=== PATIENT | female | born 1980 | race Caucasian/White ===

== ENCOUNTER 2017-05-01 15:41 | Emergency (ER) | payer SELFPAY ==
[~2017-05-01] VITALS: Ht 167.6 cm; Wt 97.0 kg
[~2017-05-01 15:41] MED LIST: ALBUAER19 INH; ARIP2TAB3 PO; BUSP15TA70 PO; CIPR1TAB11 PO; GABA1CAP5 PO; METH10TA4 PO; METH5TAB4 PO; OMEP40CA PO; SERT1TAB68 PO; TOPI100T20 PO; ZOLP10TA6 PO
[2017-05-01 15:46] VITALS: TEMP 36.7; Ht 167.6 cm; Wt 97.0 kg
[2017-05-01] MEDS ORDERED: GI COCKTAIL PO STA (17:01)
[2017-05-01] MEDS ORDERED: FAMOTIDINE 20 MG TAB PO STA (17:01)
[2017-05-01] MEDS ORDERED: SUCRALFATE 1 GM TAB PO STA (17:01)
--- NOTE | 2017-05-01 17:02 | EMERGENCY ROOM VISIT NOTE ---
History Report prepared by Ceci: Jose L Mello Under the Supervision of: Dr. Piotr Baptiste M.D. First contact with patient: 16:55 Chief Complaint: RIB PAIN Stated Complaint: CRAMPING UNDER RIB CAGE/3 DAYS/ FINGER History of Present Illness The patient is a 36 year old female who presents to the Emergency Room with complaints of persistent abdominal pain that started 3 days ago. She says that it feels like cramping up under her ribcage. She states that she thought it was gas, so she took Gas-X as well as Pepto Bismol, with no success. The patient also has taken Advil, Tylenol, and Zantac with no relief. She states that her pain is lessened when sitting, and moving around makes the pain worse. She had a laparoscopy in 2004. The patient has an IUD. Source of History: patient Onset: 3 days ago Position: abdomen Quality: cramping Timing: other (persistent) Modifying Factors (Worsening): movement Modifying Factors (Relieving): other (sitting) Note: No other associated symptoms noted. Review of Systems See HPI for pertinent positives & negatives. A total of 10 systems reviewed and were otherwise negative. Past Medical & Surgical Medical Problems: (1) Asthma (2) BIPOLAR DISORDER, UNSPECIFIED (3) Bronchitis (4) Cellulitis of hand (5) Diabetes (6) IV drug abuse (7) MIGRAINE UNSPECIFIED W/O INTRACT MGRN W/O STATUS MIGRAINOSUS (8) Polycystic ovarian disease Family History Diabetes mellitus FH: cancer FH: heart disease Hypertension Social History Smoking Status: Current Every Day Smoker Alcohol Use: none Drug Use: heroin Marital Status: single Housing Status: lives with family Occupation Status: unemployed Current/Historical Medications Scheduled Famotidine (Pepcid), 40 MG PO HS Fluoxetine (Prozac), 20 MG PO QAM Haloperidol (Haldol), 20 MG PO QPM Methylphenidate (Ritalin), 10 MG PO DAILY Methylphenidate (Ritalin), 5 MG PO DAILY Scheduled PRN Oxycodone/Acetaminophen 5MG/325MG (Percocet 5MG/325MG), 1-2 TAB PO Q4H PRN for Pain Allergies Coded Allergies: Azithromycin (Unverified Allergy, Intermediate, RASH, 05/01/17) Erythromycin (Verified Allergy, Unknown, 05/01/17) Penicillins (Verified Allergy, Unknown, 05/01/17) Sulfa Drugs (Verified Allergy, Unknown, 05/01/17) Replaces SULFAMETHOXAZ Trimethoprim (Verified Allergy, Unknown, 05/01/17) Replaces SULFAMETHOXAZ Physical Exam Vital Signs Date Time Temp Pulse Resp B/P (MAP) Pulse Ox O2 Delivery O2 Flow Rate FiO2 05/01/17 19:33 69 20 144/95 96 Room Air 05/01/17 18:29 62 05/01/17 17:45 71 20 138/110 97 Room Air 05/01/17 15:46 36.7 64 18 161/87 98 Physical Exam GENERAL: Patient is a healthy-appearing well-nourished 36 year old female. HEAD: Normocephalic atraumatic EYES: Ocular movements intact pupils equal and react to light OROPHARYNX mucous membranes are moist no exudates present no erythema or edema present NECK: Supple no nuchal rigidity CHEST: Good equal expansion LUNGS: Clear and equal to auscultation CARDIAC: Normal S1 and S2 ABDOMEN: Soft nontender no guarding BACK: No CVA tenderness EXTREMITIES: No pain upon palpation normal muscle strength in all groups no clubbing cyanosis or edema NEURO: Patient is following commands and answering questions appropriately. Alert and oriented x3 Cranial Nerves 2-12 grossly intact Medical Decision & Procedures ER Provider Diagnostic Interpretation: US results as stated below per my review and radiologist interpretation: ABDOMEN LIMITED (US) HISTORY: Pain. Nausea. Pt c/o RUQ abd pain. COMPARISON: None. FINDINGS: Pancreas: The pancreas demonstrates a normal echotexture. Liver: Unremarkable. Gallbladder: No gallbladder wall thickening. No gallstones. CBD: 3 mm Right kidney: No hydronephrosis. IMPRESSION: Normal study The above report was generated using voice recognition software. It may contain grammatical, syntax or spelling errors. Electronically signed by: Rob Beck M.D. 05/01/2017 7:09 PM Dictated Date/Time: 05/01/2017 7:08 PM Laboratory Results 05/01/17 18:02 Red Blood Count 4.56, Mean Corpuscular Volume 87.7, Mean Corpuscular Hemoglobin 30.3, Mean Corpuscular Hemoglobin Concent 34.5, Mean Platelet Volume 9.4, Neutrophils (%) (Auto) 54.4, Lymphocytes (%) (Auto) 31.5, Monocytes (%) (Auto) 9.0, Eosinophils (%) (Auto) 4.3, Basophils (%) (Auto) 0.4, Neutrophils # (Auto) 3.92, Lymphocytes # (Auto) 2.27, Monocytes # (Auto) 0.65, Eosinophils # (Auto) 0.31, Basophils # (Auto) 0.03 05/01/17 18:02 Test 05/01/17 18:02 05/01/17 18:30 White Blood Count 7.21 K/uL (4.8-10.8) Red Blood Count 4.56 M/uL (4.2-5.4) Hemoglobin 13.8 g/dL (12.0-16.0) Hematocrit 40.0 % (37-47) Mean Corpuscular Volume 87.7 fL (80-100) Mean Corpuscular Hemoglobin 30.3 pg (25-34) Mean Corpuscular Hemoglobin Concent 34.5 g/dl (32-36) Platelet Count 268 K/uL (130-400) Mean Platelet Volume 9.4 fL (7.4-10.4) Neutrophils (%) (Auto) 54.4 % Lymphocytes (%) (Auto) 31.5 % Monocytes (%) (Auto) 9.0 % Eosinophils (%) (Auto) 4.3 % Basophils (%) (Auto) 0.4 % Neutrophils # (Auto) 3.92 K/uL (1.4-6.5) Lymphocytes # (Auto) 2.27 K/uL (1.2-3.4) Monocytes # (Auto) 0.65 K/uL (0.11-0.59) Eosinophils # (Auto) 0.31 K/uL (0-0.5) Basophils # (Auto) 0.03 K/uL (0-0.2) RDW Standard Deviation 46.1 fL (36.4-46.3) RDW Coefficient of Variation 14.3 % (11.5-14.5) Immature Granulocyte % (Auto) 0.4 % Immature Granulocyte # (Auto) 0.03 K/uL (0.00-0.02) Anion Gap 7.0 mmol/L (3-11) Est Creatinine Clear Calc Drug Dose 139.1 ml/min Estimated GFR () 131.5 Estimated GFR (Non- 113.4 BUN/Creatinine Ratio 15.9 (10-20) Calcium Level 8.7 mg/dl (8.5-10.1) Total Bilirubin 0.3 mg/dl (0.2-1) Direct Bilirubin < 0.1 mg/dl (0-0.2) Aspartate Amino Transf (AST/SGOT) 15 U/L (15-37) Alanine Aminotransferase (ALT/SGPT) 28 U/L (12-78) Alkaline Phosphatase 109 U/L (45-117) Total Protein 7.5 gm/dl (6.4-8.2) Albumin 3.7 gm/dl (3.4-5.0) Lipase 819 U/L (73-393) Urine Color YELLOW Urine Appearance CLEAR (CLEAR) Urine pH 6.5 (4.5-7.5) Urine Specific Kemp 1.006 (1.000-1.030) Urine Protein NEG (NEG) Urine Glucose (UA) NEG (NEG) Urine Ketones NEG (NEG) Urine Occult Blood NEG (NEG) Urine Nitrite NEG (NEG) Urine Bilirubin NEG (NEG) Urine Urobilinogen NEG (NEG) Urine Leukocyte Esterase NEG (NEG) Urine Test NEG (NEG) Labs reviewed by ED physician. Medications Administered Medications (Trade) Dose Ordered Sig/Leola Route Start Time Stop Time Status Last Admin Dose Admin Famotidine (Pepcid Tab) 20 mg NOW STAT PO 05/01/17 17:01 05/01/17 17:04 DC 05/01/17 17:48 20 MG Sucralfate (Carafate Tab) 1 gm NOW STAT PO 05/01/17 17:01 05/01/17 17:04 DC 05/01/17 17:47 1 GM Al Hydroxide/Mg Hydroxide (Maalox Susp) 30 ml STK-MED ONCE .ROUTE 05/01/17 17:35 05/01/17 17:36 DC 05/01/17 17:48 30 ML Lidocaine HCl (Viscous Lidocaine 2% Soln) 20 ml STK-MED ONCE .ROUTE 05/01/17 17:35 05/01/17 17:36 DC 05/01/17 17:49 20 ML ED Course 1657: Past medical records reviewed. The patient was evaluated in room B7. A complete history and physical examination was performed. 1701: Ordered Carafate Tab 1 gm PO, Pepcid Tab 20 mg PO, GI Cocktail 24 ml PO. 1944: Upon reexamination the patient is resting comfortably. I discussed results and treatment plan with the patient. she verbalizes agreement and understanding. The patient is ready for discharge. Medical Decision Differential diagnosis: Etiologies such as appendicitis, diverticulitis, PUD, biliary pathology, UTI, pancreatitis, obstruction, mesenteric ischemia, aortic pathology, infections, inflammatory bowel disease, renal colic, as well as others were entertained. This is a 36-year-old female who presents emergency department complaining of epigastric pain. The patient was given Pepcid Carafate and GI cocktail in the emergency Department with improvement in her symptoms. I do believe that the patient as well as enough that she can be safely discharged home. The patient has a slight elevation in her pancreas which I believe could be admitted can or of pancreatitis. Her ultrasound did not show any evidence of pancreatitis. Using shared medical decision-making the patient does not feel a CAT scan will reveal the cause of her pain. Based on this reasoning I do feel that she is well enough to be discharged home. I recommended a clear liquid diet for the next 48 hours and the patient was given pain medication. Patient was in agreement with the treatment plan. Medication Reconcilliation Current Medication List: was personally reviewed by me Blood Pressure Screening Patient's blood pressure: Elevated blood pressure Blood pressure disposition: Referred to PCP Impression Primary Impression: Pancreatitis Scribe Attestation The scribe's documentation has been prepared under my direction and personally reviewed by me in its entirety. I confirm that the note above accurately reflects all work, treatment, procedures, and medical decision making performed by me. Departure Information Dispostion Home / Self-Care Prescriptions Oxycodone/Acetaminophen 5MG/325MG (PERCOCET 5MG/325MG) Tab 1-2 TAB PO Q4H Y for Pain, #14 TAB Prov: Piotr Baptiste MD 05/01/17 Famotidine (Pepcid) 40 Mg Tab 40 MG PO HS for 10 Days, #10 TAB Prov: Piotr Baptiste MD 05/01/17 Referrals No Doctor, Assigned (PCP) Vipin An M.D. Patient Instructions My [facility], Pancreatitis Acute Dc Additional Instructions Follow up with Dr An's office Clear liquid diet next 48 hours You were found to have an elevated blood pressure today (>120 sytolic or >90 diastolic). Per medicare guidelines, you need to follow up with this blood pressure screening with your Primary Care Physician (PCP). For a new PCP call [phone]. You received narcotic or benzodiazepene medication while in the emergency room today. Do not drive, operate heavy machinery, or drink alcohol under the influence of this medication. Take 600 mg Ibuprofen every 6 hours Take Percocet for breakthrough pain You have been examined and treated today on an emergency basis only. This is not a substitute for, or an effort to provide, complete comprehensive medical care. It is impossible to recognize and treat all injuries or illnesses in a single emergency department visit. It is therefore important that you follow up closely with [facility]. Call as soon as possible for an appointment. Thank you for your time and consideration. I look forward to speaking with you again soon. Please don't hesitate to call us if you have any questions. Problem Qualifiers Primary Impression: Pancreatitis Chronicity: acute Pancreatitis type: unspecified pancreatitis type Acute pancreatitis complication: unspecified Qualified Codes: K85.90 - Acute pancreatitis without necrosis or infection, unspecified
[2017-05-01] MEDS ORDERED: ALUMINUM/MAGNESIUM SUSP 30 ML UDC ONE (17:35)
[2017-05-01] MEDS ORDERED: LIDOCAINE HCL 2% VISC SOLN 20 ML UDC ONE (17:35)
[2017-05-01] MEDS ORDERED: FLUO20CA35 PO (17:37)
[2017-05-01] MEDS ORDERED: HALO10TA17 PO (17:37)
[2017-05-01 18:31] LABS: BASO % 0.4 %; BASO ABS # 0.03 K/uL (0-0.2); COMPLETE YES; EOS % 4.3 %; IG% 0.4 %; LYMPH % 31.5 %; LYMPH ABS # 2.27 K/uL (1.2-3.4); MEAN CELL VOLUME 87.7 fL (80-100); MEAN CORPUSCULAR HEMOGLOBIN 30.3 pg (25-34); MEAN CORPUSCULAR HGB CONC 34.5 g/dl (32-36); MEAN PLATELET VOLUME 9.4 fL (7.4-10.4); NEUT % 54.4 %; PLATELET COUNT 268 K/uL (130-400); RED BLOOD COUNT 4.56 M/uL (4.2-5.4); WHITE BLOOD COUNT 7.21 K/uL (4.8-10.8)
[2017-05-01 18:50] LABS: ALT/SGPT 28 U/L (12-78); AST/SGOT 15 U/L (15-37); BLOOD UREA NITROGEN 10 mg/dl (7-18); BUN/CREATININE RATIO 15.9 (10-20); CALCIUM 8.7 mg/dl (8.5-10.1); CARBON DIOXIDE 23 mmol/L (21-32); CHLORIDE 110 mmol/L (98-107); CREATININE 0.65 mg/dl (0.60-1.20); GLUCOSE 81 mg/dl (70-99); POTASSIUM 3.9 mmol/L (3.5-5.1); SODIUM 140 mmol/L (136-145)
[2017-05-01 18:53] LABS: ALKALINE PHOSPHATASE 109 U/L (45-117)
[2017-05-01 19:07] LABS: URINE APPEARANCE CLEAR (CLEAR); URINE BILIRUBIN NEG (NEG); URINE COLOR YELLOW; URINE NITRITE NEG (NEG); URINE PH 6.5 (4.5-7.5); URINE SPECIFIC GRAVITY 1.006 (1.000-1.030); UROBILINOGEN NEG (NEG)
[2017-05-01 19:08] LABS: PREG INTERNAL NEGATIVE QC NEG CLEAR BACKGROUND; PREG INTERNAL POSITIVE QC POS CONTROL LINE
[2017-05-01 19:09] LABS: MANUAL MICROSCOPIC REQUIRED? NO; REVIEW REQ? NO
--- NOTE | 2017-05-01 19:10 | DIAGNOSTIC IMAGING REPORT ---
ABDOMEN LIMITED (US) HISTORY: Pain. Nausea. Pt c/o RUQ abd pain. COMPARISON: None. FINDINGS: Pancreas: The pancreas demonstrates a normal echotexture. Liver: Unremarkable. Gallbladder: No gallbladder wall thickening. No gallstones. CBD: 3 mm Right kidney: No hydronephrosis. IMPRESSION: Normal study The above report was generated using voice recognition software. It may contain grammatical, syntax or spelling errors. Electronically signed by: Rob Beck M.D. 05/01/2017 7:09 PM Dictated Date/Time: 05/01/2017 7:08 PM
[2017-05-01] MEDS ORDERED: FAMO40TA6 PO (19:25)
[2017-05-01] MEDS ORDERED: OXYC-57 PO (19:25)
[2017-05-01 19:33] VITALS: BP 144/95; PULSE 69; O2SAT 96
== END 2017-05-01 20:00 | disposition home or self-care (01) ==
LOC: C.EDB 15:42
DX: K85.90 Acute pancreatitis without necrosis or infection, unspecified (principal); Z97.5 Presence of (intrauterine) contraceptive device; J45.909 Unspecified asthma, uncomplicated; F31.9 Bipolar disorder, unspecified; E11.9 Type 2 diabetes mellitus without complications; E28.2 Polycystic ovarian syndrome; F11.10 Opioid abuse, uncomplicated; Z83.3 Family history of diabetes mellitus; Z80.9 Family history of malignant neoplasm, unspecified; Z82.49 Family history of ischemic heart disease and other diseases of the circulatory system; F17.210 Nicotine dependence, cigarettes, uncomplicated; Z79.899 Other long term (current) drug therapy

== ENCOUNTER → 2017-07-12 | Outpatient (CLI) | payer OTHER ==
[~2017-07-12] MED LIST changes: -ALBUAER19 INH; -ARIP2TAB3 PO; -BUSP15TA70 PO; -CIPR1TAB11 PO; +FLUO20CA35 PO; -GABA1CAP5 PO; +HALO10TA17 PO; -OMEP40CA PO; +OXYC-57 PO; -SERT1TAB68 PO; -TOPI100T20 PO; -ZOLP10TA6 PO
== END | disposition home or self-care (01) ==
LOC: C.PATHSPEC 17:49
PROVIDERS: ATTEND Orthopaedic Surgery
DX: L72.0 Epidermal cyst (principal)

== ENCOUNTER → 2017-08-30 | Outpatient (CLI) | payer OTHER ==
--- NOTE | 2017-08-30 15:38 | DIAGNOSTIC IMAGING REPORT ---
L FOOT MIN 3 VIEWS ROUTINE CLINICAL HISTORY: M79.672 Foot pain, [id number] COMPARISON: None. DISCUSSION: No fractures or dislocations are visualized. There are no erosive or destructive changes. IMPRESSION: No evidence of fracture. No evidence of erosive disease. Electronically signed by: Mynor Torres M.D. 08/30/2017 3:37 PM Dictated Date/Time: 08/30/2017 3:36 PM
== END | disposition home or self-care (01) ==
LOC: C.RAD1850 14:44
PROVIDERS: ATTEND Nurse Practitioner Adult Health
DX: M79.672 Pain in left foot (principal)

== ENCOUNTER 2017-10-11 12:07 | Emergency (ER) | payer OTHER ==
[~2017-10-11] VITALS: Ht 167.6 cm; Wt 100.0 kg
[2017-10-11 12:16] VITALS: TEMP 36.7; Ht 167.6 cm; Wt 100.0 kg
[2017-10-11] MEDS ORDERED: CYM/30 PO (12:40)
[2017-10-11] MEDS ORDERED: TOPI100T20 PO (12:40)
[2017-10-11 13:48] VITALS: BP 149/99; PULSE 66; O2SAT 99
[2017-10-11] MEDS ORDERED: CEPH500C2 PO (13:54)
[2017-10-11] MEDS ORDERED: CLC/300 PO (13:54)
[2017-10-11] MEDS ORDERED: TRAM-10 PO (13:54)
--- NOTE | 2017-10-11 13:57 | EMERGENCY ROOM VISIT NOTE ---
ED Visit Note First contact with patient: 12:46 CHIEF COMPLAINT: Left facial pain and swelling 3 days HISTORY OF PRESENT ILLNESS: Patient is a 36-year-old white female who presents to emergency department for evaluation of left facial pain and swelling 2 days. Her symptoms started on Monday with what she thought was a "deep zit," to the left of her nose. Yesterday when she woke up, her left eye was swollen shut, and the area was becoming larger, warm to the touch and hard. Today she notes increasing redness in her left cheek and swelling below her right eye. She has taken ibuprofen and applied warm compresses to the area. She rates her discomfort a 7/10. She reports feeling poorly over the last couple of days, but has not had a documented fever. She denies any drainage from the area. There was no injury to the skin of the face recently. REVIEW OF SYSTEMS: Review of systems as per HPI. All other systems reviewed were negative. At least 6 systems reviewed. PMH: Electronic medical records are reviewed and summarized as above/below. See Problem List. Upon review of the patient's old records, she does have a history of IV drug use which is in remission, and has a history of multiple subcutaneous abscesses secondary to this. Tetanus is up-to-date. SOCIAL HISTORY: Patient lives at home with her significant other. She is a smoker. 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 PHYSICAL EXAM: Vital Signs: Reviewed Nurse's notes. GENERAL: Patient is a well-appearing 36-year-old white female who is awake and alert and nontoxic in appearance. Her vital signs are stable. HEAD: Atraumatic, without temporal or scalp tenderness. EYES: PERRL, EOMI, no discharge or injection. EARS: Tympanic membranes intact, not inflamed, have normal contour. External canals clear. NOSE: Nares patent, turbinates moist without rhinorrhea. MOUTH: Mucous membranes moist, no lesions, tongue and gums appear normal. THROAT: No pharyngeal injection, exudates, or tonsillar hypertrophy. Airway is patent. NECK: Supple, nontender, no lymphadenopathy. FACE: Tenderness and swelling and increased warmth of the skin just lateral to the left side of the nose toward the medial corner of the eye. The globe is not involved. There is no significant periorbital soft tissue swelling or erythema. The skin is intact. There is no fluctuance or pointing. EMERGENCY DEPARTMENT COURSE: The patient was seen and evaluated as above. Her old records are reviewed. As stated above, she does have a history of abscesses previously, but no history of MRSA. She does report multiple antibiotic allergies, but states that she can tolerate Keflex. She'll be placed on Keflex and clindamycin. She was encouraged to apply warm compresses to the affected area. She is given a small prescription for tramadol to use as needed for pain in addition to Tylenol and ibuprofen. At this time, she appears to have some localized infection with surrounding inflammation. There is no fluctuance to suspect drainable abscess. I do not suspect extension into the preseptal or periorbital area at this time. She is otherwise afebrile and nontoxic-appearing. She was advised to recheck with her PCP if her symptoms are not improving, return to the ED for worsening symptoms. Medication reconciliation: I attest that I have personally reviewed the patient' s current medication list. Blood pressure screening: Patient was found to have a slightly elevated blood pressure due to circumstances. I do not believe that the patient requires hypertension monitoring. Problem List Medical Problems: (1) Anxiety State Nos Status: Chronic (2) Asthma Status: Chronic (3) Avulsion, skin Status: Resolved (4) BIPOLAR DISORDER, UNSPECIFIED Status: Chronic (5) Bronchitis Status: Resolved (6) Cellulitis of hand Status: Resolved (7) Depressive Disorder Nec Status: Chronic (8) Diabetes Status: Chronic (9) IV drug abuse Status: Resolved (10) MIGRAINE UNSPECIFIED W/O INTRACT MGRN W/O STATUS MIGRAINOSUS Status: Chronic (11) Pancreatitis Status: Resolved (12) Polycystic ovarian disease Status: Chronic Current/Historical Medications Scheduled Cephalexin Monohydrate (Keflex), 500 MG PO QID Clindamycin HCl (Clindamycin HCl), 1 CAP PO TID Duloxetine HCl (Cymbalta), 30 MG PO DAILY Methylphenidate (Ritalin), 10 MG PO DAILY Methylphenidate (Ritalin), 5 MG PO DAILY Topiramate (Topamax), 100 MG PO BID Scheduled PRN Tramadol (Ultram), 1-2 TABS PO Q4H PRN for Pain Allergies Coded Allergies: Azithromycin (Unverified Allergy, Intermediate, RASH, 10/11/17) Erythromycin (Verified Allergy, Unknown, 10/11/17) Penicillins (Verified Allergy, Unknown, 10/11/17) Sulfa Drugs (Verified Allergy, Unknown, 10/11/17) Replaces SULFAMETHOXAZ Trimethoprim (Verified Allergy, Unknown, 10/11/17) Replaces SULFAMETHOXAZ Vital Signs Date Time Temp Pulse Resp B/P (MAP) Pulse Ox O2 Delivery O2 Flow Rate FiO2 10/11/17 13:48 66 20 149/99 99 10/11/17 12:16 36.7 87 18 146/82 97 Departure Information Impression Primary Impression: Facial infection Prescriptions Tramadol (Ultram) 50 Mg Tab 1-2 TABS PO Q4H Y for Pain, #15 TAB For Initial Treatment Prov: Alicia Reyes PA 10/11/17 Clindamycin HCl (Clindamycin HCl) 300 Mg Cap 1 CAP PO TID for 10 Days, #30 CAP Prov: Alicia Reyes PA 10/11/17 Cephalexin Monohydrate (KEFLEX) 500 Mg Cap 500 MG PO QID, #40 CAP Prov: Alicia Reyes PA 10/11/17 Referrals Kelly Luu CRNP (PCP) Patient Instructions My [facility] Additional Instructions Tramadol (Ultram) 50mg: Take 1-2 pills every four hours for breakthrough pain. Avoid alcohol, operating machinery or dangerous equipment, working on ladders or roofs, DRIVING, or situations where being under the influence may be dangerous. It is recommended to use an [id number]-wik-myesxow stool softener such as Colace, 100mg twice daily while taking this medication to avoid constipation. Cephalexin(Keflex) 500mg: Take one pill four times daily for 10 days for your skin infection. All antibiotics can cause diarrhea. If this occurs and you feel worse or it does not resolve in 1-2 days follow up with your doctor or return to the Emergency Department as this could be signs of serious underlying problems. Any medication can cause an allergic reaction, stop the pills immediately and return to the ER for rash, hives, breathing difficulties, or swelling. Clindamycin 300 mg: Take one pill 3 daily for 10 days for your infection. Take with food, but avoid dairy. Avoid prolonged sun exposure since this medication makes you temporarily more susceptible to sunburns. All antibiotics can cause diarrhea. If this occurs and you feel worse or it does not resolve in 1-2 days follow up with your doctor or return to the Emergency Department as this could be signs of serious underlying problems. Any medication can cause an allergic reaction, stop the pills immediately and return to the ER for rash, hives, breathing difficulties, or swelling. Ibuprofen(Motrin, Advil) may be used for fever or pain. Use 600mg every six hours as needed. Take with food. Avoid using more than 2400mg in a 24 hour period. Do not use 2400mg per day for more than three consecutive days without physician direction. Prolonged inappropriate use can lead to stomach upset or ulcers. (AND/OR) Acetaminophen(Tylenol) may be used for fever or pain. Use 1000mg every six hours as needed. Avoid using more than 3000mg in a 24 hour period. Warm compresses to the affected area 4 times daily for 15-20 minutes. Rest and drink plenty of fluids. Continue current medications. Return to the ER for severe pain, persistent fevers, spreading redness, or any worsening of your condition. Follow up with your primary physician within 2-3 days for a recheck of the current condition.
== END 2017-10-11 14:08 | disposition home or self-care (01) ==
LOC: C.EDB 12:09 → C.EDD 14:08
DX: L08.9 Local infection of the skin and subcutaneous tissue, unspecified (principal); J45.909 Unspecified asthma, uncomplicated; E11.9 Type 2 diabetes mellitus without complications; F17.200 Nicotine dependence, unspecified, uncomplicated; R03.0 Elevated blood-pressure reading, without diagnosis of hypertension; Z87.2 Personal history of diseases of the skin and subcutaneous tissue; Z86.59 Personal history of other mental and behavioral disorders

== ENCOUNTER → 2017-12-30 | Outpatient (CLI) | payer OTHER ==
[~2017-12-30] MED LIST changes: +CEPH500C2 PO; +CYM/30 PO; -FLUO20CA35 PO; -HALO10TA17 PO; -OXYC-57 PO; +TOPI100T20 PO; +TRAM-10 PO
[2017-12-30 12:45] LABS: BASO % 0.9 %; BASO ABS # 0.06 K/uL (0-0.2); EOS % 1.3 %; EOS ABS # 0.09 K/uL (0-0.5); HEMATOCRIT 38.8 % (37-47); HEMOGLOBIN 13.9 g/dL (12.0-16.0); IG# 0.02 K/uL (0.00-0.02); LYMPH % 24.9 %; LYMPH ABS # 1.72 K/uL (1.2-3.4); MEAN CELL VOLUME 90.9 fL (80-100); MEAN CORPUSCULAR HEMOGLOBIN 32.6 pg (25-34); MEAN CORPUSCULAR HGB CONC 35.8 g/dl (32-36); MEAN PLATELET VOLUME 10.6 fL (7.4-10.4); MONO % 6.8 %; MONO ABS # 0.47 K/uL (0.11-0.59); NEUT % 65.8 %; NEUT ABS # 4.56 K/uL (1.4-6.5); PLATELET COUNT 208 K/uL (130-400); RED CELL DISTRIBUTION WIDTH CV 13.3 % (11.5-14.5); RED CELL DISTRIBUTION WIDTH SD 43.9 fL (36.4-46.3); WHITE BLOOD COUNT 6.92 K/uL (4.8-10.8)
[2017-12-30 13:48] LABS: HEP C IGG 13 YRS+OLDER_RFLX NEG (NEG)
[2018-01-02 20:30] LABS: HEPATITIS B CORE IGM TC51854R NON-REACTIVE (NON-REACTIVE); HEPATITIS BE ANTIBODY TC 556 Nonreactive
== END | disposition home or self-care (01) ==
LOC: C.LAB1850 11:11
PROVIDERS: ATTEND Nurse Practitioner Adult Health
DX: F19.10 Other psychoactive substance abuse, uncomplicated (principal); Z87.898 Personal history of other specified conditions; J44.9 Chronic obstructive pulmonary disease, unspecified; M25.50 Pain in unspecified joint; M79.643 Pain in unspecified hand

== ENCOUNTER 2018-01-05 14:05 | Emergency (ER) | payer OTHER ==
[~2018-01-05] VITALS: Ht 167.6 cm; Wt 96.8 kg
[2018-01-05 14:13] VITALS: TEMP 36.9; Ht 167.6 cm; Wt 96.8 kg
[2018-01-05] MEDS ORDERED: SODIUM CHLORIDE 0.9% 1000ML 1,000 ML IV STA (14:33)
[2018-01-05] MEDS ORDERED: ONDANSETRON INJ 2 MG/ML 2 ML VIAL IV STA (14:33)
--- NOTE | 2018-01-05 14:37 | EMERGENCY ROOM VISIT NOTE ---
History Report prepared by Ceci: Vira Peace Under the Supervision of: Dr. Memo Valera M.D. First contact with patient: 14:27 Chief Complaint: GI ASSESSMENT Stated Complaint: GI SYMPTOMS/PAIN Nursing Triage Summary: Relates that she has had gastrointestinal discomfort from the epigastric to the lower abdominal for 3 weeks. She has had bowel movements that range from diarrhea to constipation. She relates that she has had pancreatitis in the past and this feels similar. 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 She describes the feeling as "seasick" and notes she has pressure and cramping. Eating is a worsening factor. She has "bright red" stool and has nausea but denies any vomiting, urinary symptoms, or fevers. She is currently on her period and notes her periods have been abnormally painful. She has an IUD and denies any chance of . No trauma or injury. No chest pain or shortness of breath. No fever or chills. No dysuria or hematuria. 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 A total of 10 systems reviewed and were otherwise negative. Past Medical & Surgical Medical Problems: (1) Anxiety State Nos (2) Asthma (3) Avulsion, skin (4) BIPOLAR DISORDER, UNSPECIFIED (5) Bronchitis (6) Cellulitis of hand (7) Depressive Disorder Nec (8) Diabetes (9) IV drug abuse (10) MIGRAINE UNSPECIFIED W/O INTRACT MGRN W/O STATUS MIGRAINOSUS (11) Pancreatitis (12) Polycystic ovarian disease Old medical records were reviewed. Nurse's notes were reviewed and I agree with. Family History Diabetes mellitus FH: cancer FH: heart disease Hypertension Social History Smoking Status: Current Every Day Smoker Alcohol Use: none Drug Use: heroin Marital Status: single Housing Status: lives with family Occupation Status: unemployed Current/Historical Medications Scheduled Cephalexin Monohydrate (Keflex), 500 MG PO QID Duloxetine HCl (Cymbalta), 30 MG PO DAILY Methylphenidate (Ritalin), 10 MG PO DAILY Methylphenidate (Ritalin), 5 MG PO DAILY Ondasetron Odt (Zofran Odt), 4 MG SL Q6H Topiramate (Topamax), 100 MG PO BID Scheduled PRN Tramadol (Ultram), 1-2 TABS PO Q4H PRN for Pain Allergies Coded Allergies: Azithromycin (Unverified Allergy, Intermediate, RASH, 10/11/17) Erythromycin (Verified Allergy, Unknown, 10/11/17) Penicillins (Verified Allergy, Unknown, 10/11/17) Sulfa Drugs (Verified Allergy, Unknown, 10/11/17) Replaces SULFAMETHOXAZ Trimethoprim (Verified Allergy, Unknown, 10/11/17) Replaces SULFAMETHOXAZ Physical Exam Vital Signs Date Time Temp Pulse Resp B/P (MAP) Pulse Ox O2 Delivery O2 Flow Rate FiO2 01/05/18 18:49 74 20 151/111 97 01/05/18 16:31 67 20 135/98 97 Room Air 01/05/18 15:23 78 20 128/88 98 Room Air 01/05/18 14:13 36.9 89 20 135/87 97 Room Air Physical Exam General: Non-ill appearing young female in no acute distress. HEENT: Normal cephalic atraumatic. Pupils are equal round and reactive to light. Extraocular movements are intact. Oropharynx is pink with moist mucous membranes. No swelling of the mouth lips or tongue. Neck: Supple with a midline trachea. No meningeal signs or stiffness, no JVD or bruits. No Stridor. Chest: Clear to auscultation bilaterally. No wheezes or rhonchi. No increased work of breathing. Heart: regular rate and rhythm. Abdomen: Abdomen is mildly tender to epigastric area. Extremities: No cyanosis clubbing or edema. No calf tenderness or assymetry Spine/Back. Non tender to palpation. No CVA tenderness Skin: Good turgor without rashes. Neurologic exam: Cranial nerves two through 12 are intact. Motor and sensation are intact and symmetrical throughout. Medical Decision & Procedures ER Provider Diagnostic Interpretation: Radiology results as stated below per my review and radiologist interpretation: ABDOMEN AND PELVIS CT WITHOUT CONTRAST CT DOSE: 1079.07 mGy.cm HISTORY: Epigastric pain. eval for pancreatitis, GB disease TECHNIQUE: Multiaxial CT images of the abdomen and pelvis were performed without contrast. A dose lowering technique was utilized adhering to the principles of ALARA. COMPARISON STUDY: Abdominal ultrasound 05/01/2017. FINDINGS: There is a mosaic attenuation of the lung bases suggestive of mild air trapping. This can be seen in the setting of small airways disease. No pneumoperitoneum. No pneumatosis. Sclerosis within the bilateral sacroiliac joints. This could be due to degenerative change or a mild sacroiliitis. The unenhanced liver, spleen, adrenal glands, gallbladder, and pancreas are unremarkable. No renal stones. No hydronephrosis. There is suboptimal evaluation for solid abdominal visceral abnormality due to the lack of intravenous contrast. No retroperitoneal lymphadenopathy. Normal caliber abdominal aorta. There is an intrauterine device is in good position. The bladder and ovaries are unremarkable. There is a tampon within the vagina. A few colonic diverticula. Suboptimal evaluation for bowel pathology due to the lack of intravenous and oral contrast. However, there is no definite bowel wall thickening or obstruction. Normal appendix. There is a 7.6 x 2.2 cm fat-containing lesion within the left radius medial. This favors a lipoma. IMPRESSION: 1. The unenhanced pancreas and gallbladder appear unremarkable. 2. No bowel wall thickening or obstruction. 3. Normal appendix. 4. Colonic diverticulosis. Electronically signed by: Gregg Rodriguez M.D. 01/05/2018 5:10 PM Dictated Date/Time: 01/05/2018 5:02 PM Laboratory Results 01/05/18 15:40 Red Blood Count 3.94, Mean Corpuscular Volume 90.9, Mean Corpuscular Hemoglobin 31.7, Mean Corpuscular Hemoglobin Concent 34.9, Mean Platelet Volume 9.4, Neutrophils (%) (Auto) 55.0, Lymphocytes (%) (Auto) 35.4, Monocytes (%) (Auto) 6.3, Eosinophils (%) (Auto) 2.7, Basophils (%) (Auto) 0.5, Neutrophils # (Auto) 4.29, Lymphocytes # (Auto) 2.76, Monocytes # (Auto) 0.49, Eosinophils # (Auto) 0.21, Basophils # (Auto) 0.04 01/05/18 15:40 Test 01/05/18 15:40 White Blood Count 7.80 K/uL (4.8-10.8) Red Blood Count 3.94 M/uL (4.2-5.4) Hemoglobin 12.5 g/dL (12.0-16.0) Hematocrit 35.8 % (37-47) Mean Corpuscular Volume 90.9 fL (80-100) Mean Corpuscular Hemoglobin 31.7 pg (25-34) Mean Corpuscular Hemoglobin Concent 34.9 g/dl (32-36) Platelet Count 282 K/uL (130-400) Mean Platelet Volume 9.4 fL (7.4-10.4) Neutrophils (%) (Auto) 55.0 % Lymphocytes (%) (Auto) 35.4 % Monocytes (%) (Auto) 6.3 % Eosinophils (%) (Auto) 2.7 % Basophils (%) (Auto) 0.5 % Neutrophils # (Auto) 4.29 K/uL (1.4-6.5) Lymphocytes # (Auto) 2.76 K/uL (1.2-3.4) Monocytes # (Auto) 0.49 K/uL (0.11-0.59) Eosinophils # (Auto) 0.21 K/uL (0-0.5) Basophils # (Auto) 0.04 K/uL (0-0.2) RDW Standard Deviation 44.4 fL (36.4-46.3) RDW Coefficient of Variation 13.4 % (11.5-14.5) Immature Granulocyte % (Auto) 0.1 % Immature Granulocyte # (Auto) 0.01 K/uL (0.00-0.02) Urine Color YELLOW Urine Appearance CLEAR (CLEAR) Urine pH 5.0 (4.5-7.5) Urine Specific [place] 1.021 (1.000-1.030) Urine Protein NEG (NEG) Urine Glucose (UA) NEG (NEG) Urine Ketones NEG (NEG) Urine Occult Blood 2+ (NEG) Urine Nitrite NEG (NEG) Urine Bilirubin NEG (NEG) Urine Urobilinogen NEG (NEG) Urine Leukocyte Esterase NEG (NEG) Urine WBC (Auto) 0 /hpf (0-5) Urine RBC (Auto) 0-4 /hpf (0-4) Urine Hyaline Casts (Auto) 0 /lpf (0-5) Urine Epithelial Cells (Auto) 10-20 /lpf (0-5) Urine Bacteria (Auto) NEG (NEG) Anion Gap 7.0 mmol/L (3-11) Est Creatinine Clear Calc Drug Dose 101.6 ml/min Estimated GFR () 96.6 Estimated GFR (Non- 83.3 BUN/Creatinine Ratio 9.1 (10-20) Calcium Level 8.5 mg/dl (8.5-10.1) Total Bilirubin 0.2 mg/dl (0.2-1) Direct Bilirubin < 0.1 mg/dl (0-0.2) Aspartate Amino Transf (AST/SGOT) 13 U/L (15-37) Alanine Aminotransferase (ALT/SGPT) 26 U/L (12-78) Alkaline Phosphatase 91 U/L (45-117) Total Protein 7.1 gm/dl (6.4-8.2) Albumin 3.7 gm/dl (3.4-5.0) Lipase 126 U/L (73-393) Laboratory studies as stated above per my review. Medications Administered Medications (Trade) Dose Ordered Sig/Leola Route Start Time Stop Time Status Last Admin Dose Admin Ondansetron HCl (Zofran Inj) 4 mg NOW STAT IV 01/05/18 14:33 01/05/18 14:34 DC 01/05/18 15:47 4 MG Morphine Sulfate (MoRPHine SULFATE INJ) 4 mg NOW STAT IV 01/05/18 16:11 01/05/18 16:13 DC 01/05/18 16:26 4 MG Ondansetron HCl (ZOFRAN ODT 4MG Home Pack) 1 homepack UD ONCE PO 01/05/18 18:30 01/05/18 18:31 DC 01/05/18 18:30 1 HOMEPACK ED Course 1428: Past medical records reviewed. The patient was evaluated in room C7, and a complete history and physical examination were performed. 1433: Zofran Inj 4 mg IV Sodium Chloride 1000 ml @ 999 mls/hr IV 1456: I checked on the patient at this time. She is resting comfortably. 1609: I checked on the patient at this time. She is asking for something for pain. 1611: Morphine Sulfate 4 mg IV 1830: Ondansetron HCl 1 homepack PO 1850: Upon reevaluation, the patient is agreeable. I discussed the results and treatment plan with her. She verbalized agreement of the treatment plan. The patient was discharged home. Medical Decision Differential diagnosis: Etiologies such as pancreatitis, viral illness, colitis, liver disease, UTI, , as well as others were entertained. This patient comes in as described above. She was placed in room C7. she has had some GI symptoms for several weeks now. She looks well on exam and has minimal abdominal tenderness. She has no fever. She has stable vital signs. IV access established was hydrated normal saline. Multiple blood testing was obtained. She was reassessed frequently. She was ordered Zofran as well as IV fluids. She did ask for something for pain and was given morphine 4 mg IV. She is not driving. She is no significant white count or fever to suggest infection. She has no significant anemia. test is negative. She has no acute electrolyte or metabolic abnormalities. Lipase is normal therefore unlikely pancreatitis. I did a CAT scan of her abdomen and no there are no acute findings. Talking to the patient, she has had a lot of problems with her menstrual periods as well and she may need to be follow-up with a butcher's assistant this could be related to her stomach can be made more of a gastritis. She may need to see a GI specialist and/or butcher's assistant. I will have her use Zofran if needed for nausea have a mild diet and follow-up with her regular doctor. Return to the ER if increasing pain, fever chills, worsening symptoms, any new problems or concerns. Medication Reconcilliation Current Medication List: was personally reviewed by me Blood Pressure Screening Patient's blood pressure: Normal blood pressure Blood pressure disposition: Did not require urgent referral Impression Primary Impression: Diffuse abdominal pain Scribe Attestation The scribe's documentation has been prepared under my direction and personally reviewed by me in its entirety. I confirm that the note above accurately reflects all work, treatment, procedures, and medical decision making performed by me. Departure Information Dispostion Home / Self-Care Prescriptions Ondasetron Odt (ZOFRAN ODT) 4 Mg Tab 4 MG SL Q6H for Nausea, #10 TAB Prov: Memo Valera M.D. 01/05/18 Referrals Vipin Crouch M.D. (PCP) Forms HOME CARE DOCUMENTATION FORM, IMPORTANT VISIT INFORMATION Patient Instructions [facility] Additional Instructions Rest. Drink plenty of fluids. Use Zofran if needed for nausea every 6 hours Return if: worsening of symptoms, fever or chills, Any new problems or concerns Follow-up with your doctor in 1 to 2 days for recheck
[2018-01-05 15:55] LABS: BASO % 0.5 %; BASO ABS # 0.04 K/uL (0-0.2); EOS % 2.7 %; EOS ABS # 0.21 K/uL (0-0.5); HEMATOCRIT 35.8 % (37-47); HEMOGLOBIN 12.5 g/dL (12.0-16.0); IG# 0.01 K/uL (0.00-0.02); LYMPH % 35.4 %; LYMPH ABS # 2.76 K/uL (1.2-3.4); MEAN CELL VOLUME 90.9 fL (80-100); MEAN CORPUSCULAR HEMOGLOBIN 31.7 pg (25-34); MEAN CORPUSCULAR HGB CONC 34.9 g/dl (32-36); MEAN PLATELET VOLUME 9.4 fL (7.4-10.4); MONO % 6.3 %; MONO ABS # 0.49 K/uL (0.11-0.59); NEUT ABS # 4.29 K/uL (1.4-6.5); PLATELET COUNT 282 K/uL (130-400); RED CELL DISTRIBUTION WIDTH CV 13.4 % (11.5-14.5); RED CELL DISTRIBUTION WIDTH SD 44.4 fL (36.4-46.3)
[2018-01-05] MEDS ORDERED: MoRPHine SULFATE 4 MG/ML 1 ML CARP\\VIAL IV STA (16:11)
[2018-01-05 16:15] LABS: ALBUMIN 3.7 gm/dl (3.4-5.0); ALT/SGPT 26 U/L (12-78); AST/SGOT 13 U/L (15-37); BLOOD UREA NITROGEN 8 mg/dl (7-18); CALCIUM 8.5 mg/dl (8.5-10.1); CARBON DIOXIDE 18 mmol/L (21-32); CREATININE 0.88 mg/dl (0.60-1.20); GLUCOSE 106 mg/dl (70-99); LIPASE 126 U/L (73-393); POTASSIUM 3.6 mmol/L (3.5-5.1); SODIUM 139 mmol/L (136-145)
[2018-01-05 16:18] LABS: ALKALINE PHOSPHATASE 91 U/L (45-117); TOTAL PROTEIN 7.1 gm/dl (6.4-8.2)
--- NOTE | 2018-01-05 17:12 | DIAGNOSTIC IMAGING REPORT ---
ABDOMEN AND PELVIS CT WITHOUT CONTRAST CT DOSE: 1079.07 mGy.cm HISTORY: Epigastric pain. eval for pancreatitis, GB disease TECHNIQUE: Multiaxial CT images of the abdomen and pelvis were performed without contrast. A dose lowering technique was utilized adhering to the principles of ALARA. COMPARISON STUDY: Abdominal ultrasound 05/01/2017. FINDINGS: There is a mosaic attenuation of the lung bases suggestive of mild air trapping. This can be seen in the setting of small airways disease. No pneumoperitoneum. No pneumatosis. Sclerosis within the bilateral sacroiliac joints. This could be due to degenerative change or a mild sacroiliitis. The unenhanced liver, spleen, adrenal glands, gallbladder, and pancreas are unremarkable. No renal stones. No hydronephrosis. There is suboptimal evaluation for solid abdominal visceral abnormality due to the lack of intravenous contrast. No retroperitoneal lymphadenopathy. Normal caliber abdominal aorta. There is an intrauterine device is in good position. The bladder and ovaries are unremarkable. There is a tampon within the vagina. A few colonic diverticula. Suboptimal evaluation for bowel pathology due to the lack of intravenous and oral contrast. However, there is no definite bowel wall thickening or obstruction. Normal appendix. There is a 7.6 x 2.2 cm fat-containing lesion within the left radius medial. This favors a lipoma. IMPRESSION: 1. The unenhanced pancreas and gallbladder appear unremarkable. 2. No bowel wall thickening or obstruction. 3. Normal appendix. 4. Colonic diverticulosis. Electronically signed by: Gregg Rodriguez M.D. 01/05/2018 5:10 PM Dictated Date/Time: 01/05/2018 5:02 PM
[2018-01-05] MEDS ORDERED: ONDA4TAB10 SL (18:20)
[2018-01-05] MEDS ORDERED: ONDANSETRON HOME PACK 4MG OD TAB PO ONE (18:30)
[2018-01-05 18:49] VITALS: BP 151/111; PULSE 74; O2SAT 97
== END 2018-01-05 18:51 | disposition home or self-care (01) ==
LOC: C.EDB 14:07 → C.EDC 18:51
DX: R10.84 Generalized abdominal pain (principal); Z97.5 Presence of (intrauterine) contraceptive device; F41.9 Anxiety disorder, unspecified; J45.909 Unspecified asthma, uncomplicated; F31.9 Bipolar disorder, unspecified; E11.9 Type 2 diabetes mellitus without complications; E28.2 Polycystic ovarian syndrome; Z83.3 Family history of diabetes mellitus; Z80.9 Family history of malignant neoplasm, unspecified; Z82.49 Family history of ischemic heart disease and other diseases of the circulatory system; Z79.899 Other long term (current) drug therapy; Z88.0 Allergy status to penicillin; Z88.1 Allergy status to other antibiotic agents; Z88.2 Allergy status to sulfonamides; Z88.8 Allergy status to other drugs, medicaments and biological substances

== ENCOUNTER → 2018-01-16 | Outpatient (CLI) | payer OTHER ==
[~2018-01-16] MED LIST changes: +IBUP-103 PO; +LACT1CAP21 PO; +MULT-1027 PO; +ONDA4TAB10 SL; +ONDA8TAB62 SL; +VNTHFA/IN INH
== END | disposition home or self-care (01) ==
LOC: C.LAB1850 16:22
PROVIDERS: ATTEND Physician Assistant
DX: R19.7 Diarrhea, unspecified (principal)

== ENCOUNTER → 2018-01-29 | Day surgery (SDC) | payer OTHER ==
[2018-01-19 11:44] VITALS: Ht 167.6 cm; Wt 95.5 kg
[~2018-01-29] VITALS: Ht 167.6 cm; Wt 95.5 kg
[~2018-01-29] MED LIST changes: -CEPH500C2 PO; -CYM/30 PO; +LIDOCAINE HCL 2% 2 ML VIAL (20MG/ML) ONE; -ONDA4TAB10 SL; +PROPOFOL IV EMULSION 10 MG/ML 20 ML VIAL ONE; +SODIUM CHLORIDE 0.9% 500ML 500 ML IV ONE; -TRAM-10 PO
--- NOTE | 2018-01-29 10:53 | Endo History and Physical ---
History & Physical Date of Service: January 29, 2018. Chief Complaint: change in bowel habits Referring Physician: Dr. Vipin Crouch History of Present Illness 37 yo CF who presents for colonoscopy secondary to change in bowel habits. Past Surgical History Hx Cardiac Surgery: No Hx Internal Defibrillator: No Hx Pacemaker: No Hx Abdominal Surgery: No (LAPAROSCOPY) Hx Post-Op Nausea and Vomiting: No Hx Cancer Surgery: No Hx Thoracic Surgery: No Hx Orthopedic: No Hx Urinary Tract Surgery: No Family History None Social History Smoking Status: Current Every Day Smoker Hx Substance Use: Yes (HX OF STREET DRUGS IN REMISSION) Hx Alcohol Use: No Allergies Coded Allergies: Azithromycin (Unverified Allergy, Intermediate, RASH, 10/11/17) Erythromycin (Verified Allergy, Intermediate, RASH, 01/29/18) Penicillins (Verified Allergy, Intermediate, RASH, 01/29/18) Sulfa Drugs (Verified Allergy, Intermediate, RASH, 01/29/18) Replaces SULFAMETHOXAZ Trimethoprim (Verified Allergy, Intermediate, RASH, 01/29/18) Replaces SULFAMETHOXAZ Current Medications Reported Home Medications Medications Dose Route/Sig Max Daily Dose Days Date Category Ventolin Hfa (Albuterol) 200 Puffs/19699 Mcg Aers 1-2 Puffs INH Q6H 01/19/18 Reported Zofran Odt (Ondansetron HCl) 8 Mg Soltab 8 Mg SL Q8 PRN 01/19/18 Reported Advil (Ibuprofen) 200 Mg Tab 200-600 Mg PO DAILY PRN 01/19/18 Reported Probiotic Acidophilus (Lactobacillus) 1 Cap Cap 1 Tab PO DAILY 01/19/18 Reported Multi Vitamin (Multiple Vitamin) 1 Tab Tab 1 Tab PO DAILY 01/19/18 Reported Topamax (Topiramate) 100 Mg Tab 100 Mg PO TID 10/11/17 Reported Ritalin (Methylphenidate HCl) 5 Mg Tab 5 Mg PO QPM 03/19/15 Reported Ritalin (Methylphenidate HCl) 10 Mg Tab 10 Mg PO QAM 03/19/15 Reported Vital Signs Weight (Kilograms): 95.45 Height (Feet): 5 Height (Inches): 6 Date Time Temp Pulse Resp B/P (MAP) Pulse Ox O2 Delivery O2 Flow Rate FiO2 01/29/18 10:21 36.5 70 18 118/74 (89) 96 Room Air Physical Exam General Appearance: WD/WN, no apparent distress Respiratory/Chest: Auscultation: breath sounds normal Cardiovascular: Heart Auscultation: RRR Abdomen: Bowel Sounds: normal Inspection & Palpation: soft, non-distended, no tenderness, guarding & rebound Assessment and Plan Assessment: 37 yo CF who presents for colonoscopy secondary to change in bowel habits. Plan: Proceed with colonoscopy.
--- NOTE | 2018-01-29 11:20 | Discharge Instructions ---
Endoscopy Patient Instructions Date / Procedure(s) Performed January 29, 2018. Colonoscopy Allergy Information Coded Allergies: Azithromycin (Unverified Allergy, Intermediate, RASH, 10/11/17) Erythromycin (Verified Allergy, Intermediate, RASH, 01/29/18) Penicillins (Verified Allergy, Intermediate, RASH, 01/29/18) Sulfa Drugs (Verified Allergy, Intermediate, RASH, 01/29/18) Replaces SULFAMETHOXAZ Trimethoprim (Verified Allergy, Intermediate, RASH, 01/29/18) Replaces SULFAMETHOXAZ Discharge Date / Findings January 29, 2018. Colon polyp Diverticulosis Internal hemorrhoids Medication Instructions OK to resume all medications today as prescribed Reported Home Medications Medications Dose Route/Sig Max Daily Dose Days Date Category Ventolin Hfa (Albuterol) 200 Puffs/03400 Mcg Aers 1-2 Puffs INH Q6H 01/19/18 Reported Zofran Odt (Ondansetron HCl) 8 Mg Soltab 8 Mg SL Q8 PRN 01/19/18 Reported Advil (Ibuprofen) 200 Mg Tab 200-600 Mg PO DAILY PRN 01/19/18 Reported Probiotic Acidophilus (Lactobacillus) 1 Cap Cap 1 Tab PO DAILY 01/19/18 Reported Multi Vitamin (Multiple Vitamin) 1 Tab Tab 1 Tab PO DAILY 01/19/18 Reported Topamax (Topiramate) 100 Mg Tab 100 Mg PO TID 10/11/17 Reported Ritalin (Methylphenidate HCl) 5 Mg Tab 5 Mg PO QPM 03/19/15 Reported Ritalin (Methylphenidate HCl) 10 Mg Tab 10 Mg PO QAM 03/19/15 Reported Provider Instructions Activity Restrictions - No exercising or heavy lifting for 24 hours. - Do not drink alcohol the day of the procedure. - Do not drive a car or operate machinery until the day after the procedure. - Do not make any important decisions or sign important papers in 24 hours after the procedure. Following Day: - Return to full activity which may include returning to work/school. Diet Start your diet with liquids and light foods (jello, soup, juice, toast). Then eat your usual diet if not nauseated. Treatment For Common After Affects For mild abdominal pain, bloating, or excessive gas: - Rest - Eat lightly - Lie on right side Follow-Up Information Follow-up with Dr. Vipin Crouch as scheduled Anesthesia Information What You Should Know You have had a procedure that required some medicine to reduce anxiety and discomfort. This treatment is called moderate sedation. After receiving the treatment, you may be sleepy, but you will be able to breathe on your own. The effects of the treatment may last for several hours. Follow these instructions along with Activity/Diet recommendations noted above: * Do NOT do anything where dizziness or clumsiness would be dangerous. * Rest quietly at home today, then you can be up and about tomorrow. * Have a responsible person stay with you the rest of today. * You may have had an I.V. today. If so, you may take the dressing off later today. Recommendations Call your doctor if: * Trouble breathing * Continuous vomiting for more than 24 hours * Temperature above 101 degrees * Severe abdominal pain or bloating * Pain not relieved by pain medicine ordered * There is increased drainage or redness from any incision * A large amount of rectal bleeding greater than 2-3 tablespoons. (If you had a polyp/s removed or have hemorrhoids, a small amount of blood - from the rectum is to be expected.) * You have any unanswered questions or concerns. IN THE EVENT OF A SERIOUS EMERGENCY, GO TO THE NEAREST EMERGENCY ROOM Your discharge instructions were prepared by provider Rahul Hess. Patient Instructions Signature Page Maria Victoria Veliz Patient (or Guardian) Signature/Date: I have read and understand the instructions given to me by my caregivers. Caregiver/RN/Doctor Signature/Date: The above-named patient and/or guardian has received patient instructions on this date. + Original Patient Signature Page (only) stays with chart. Please make copy for patient.
[2018-01-29 11:50] VITALS: BP 128/74; PULSE 56; O2SAT 100
--- NOTE | 2018-01-29 12:18 | Anesthesiology Progress Note ---
Anesthesia Post Op Note Date & Time January 29, 2018 at 12:18 Vital Signs Pain Intensity: 0 Vital Signs Past 12 Hours Date Time Temp Pulse Resp B/P (MAP) Pulse Ox O2 Delivery O2 Flow Rate FiO2 01/29/18 11:50 56 18 128/74 (92) 100 Room Air 01/29/18 11:35 49 16 135/96 (109) 100 Room Air 01/29/18 11:20 73 12 111/70 (84) 97 Room Air 01/29/18 10:21 36.5 70 18 118/74 (89) 96 Room Air Notes Mental Status: alert / awake / arousable, participated in evaluation Pt Amnestic to Procedure: Yes Nausea / Vomiting: adequately controlled Pain: adequately controlled Airway Patency, RR, SpO2: stable & adequate BP & HR: stable & adequate Hydration State: stable & adequate Anesthetic Complications: no major complications apparent
--- NOTE | 2018-01-29 15:46 | GI REPORT ---
Patient Name: Maria Victoria Veliz Procedure Date: 01/29/2018 10:55 AM Date of : 1980 Admit Type: Outpatient Age: 37 Gender: Female Attending MD: Rahul Hess DO Procedure: Colonoscopy Providers: Rahul Hess DO Referring MD: Vipin Crouch Indications: Change in bowel habits Medicines: Monitored Anesthesia Care Complications: No immediate complications. Estimated Blood Loss: Estimated blood loss: none. Procedure: Pre-Anesthesia Assessment: - Prior to the procedure, a History and Physical was performed, and patient medications and allergies were reviewed. The patient's tolerance of previous anesthesia was also reviewed. The risks and benefits of the procedure and the sedation options and risks were discussed with the patient. All questions were answered, and informed consent was obtained. Prior Anticoagulants: The patient has taken no previous anticoagulant or antiplatelet agents. ASA Grade Assessment: II - A patient with mild systemic disease. After reviewing the risks and benefits, the patient was deemed in satisfactory condition to undergo the procedure. After I obtained informed consent, the scope was passed under direct vision. Throughout the procedure, the patient's blood pressure, pulse, and oxygen saturations were monitored continuously. The scope was introduced through the anus and advanced to the terminal ileum. The colonoscopy was performed without difficulty. The patient tolerated the procedure well. The quality of the bowel preparation was good. The terminal ileum, ileocecal valve, appendiceal orifice, and rectum were photographed. Findings: The perianal and digital rectal examinations were normal. A 15 mm polyp was found in the sigmoid colon. The polyp was pedunculated. Area was successfully injected with 3 mL of a 1:10,000 solution of epinephrine for improved access into the stalk (by lifting the lesion prior to destruction). The polyp was removed with a hot snare. Resection and retrieval were complete. Multiple small-mouthed diverticula were found in the sigmoid colon. Non-bleeding internal hemorrhoids were found during retroflexion. The hemorrhoids were small. Impression: - One 15 mm polyp in the sigmoid colon, removed with a hot snare. Resected and retrieved. Injected. - Diverticulosis in the sigmoid colon. - Non-bleeding internal hemorrhoids. Recommendation: - Resume previous diet. - Continue present medications. - Repeat colonoscopy for surveillance based on pathology results. - Return to primary care physician as previously scheduled. Rahul Hess DO 01/29/2018 11:31:22 AM This report has been signed electronically. Note Initiated On: 01/29/2018 10:55 AM Number of Addenda: 0 I attest to the content of the Intraoperative Record and orders documented therein, exceptions below {[id number]}
== END | disposition home or self-care (01) ==
LOC: C.GI 09:48
PROVIDERS: ATTEND Internal Medicine
DX: R19.4 Change in bowel habit (principal); K57.30 Diverticulosis of large intestine without perforation or abscess without bleeding; K64.8 Other hemorrhoids; D12.5 Benign neoplasm of sigmoid colon; J44.9 Chronic obstructive pulmonary disease, unspecified; F31.9 Bipolar disorder, unspecified; E66.9 Obesity, unspecified; Z68.34 Body mass index [BMI] 34.0-34.9, adult; F17.200 Nicotine dependence, unspecified, uncomplicated; Z90.89 Acquired absence of other organs; Z98.890 Other specified postprocedural states; Z88.0 Allergy status to penicillin; Z88.1 Allergy status to other antibiotic agents; Z88.2 Allergy status to sulfonamides